=== PATIENT | female | born 1960 | race Hispanic/Latino ===

== ENCOUNTER 2022-07-28 12:11 | Emergency (ER) | payer BC, SELFPAY ==
[2022-07-28] MEDS ORDERED: Morphine 4 MG/ML VIAL ONE (13:12)
[2022-07-28] MEDS ORDERED: Dexamethasone 10 MG/ML VIAL ONE (13:12)
[2022-07-28] MEDS ORDERED: Cyclobenzaprine 10 MG TAB ONE (13:13)
[2022-07-28] MEDS ORDERED: HYDROcodone/Acetaminophen 5/325 mg Tablet ONE (14:39)
== END 2022-07-28 15:15 | disposition home or self-care (01) ==
LOC: CSHERS 12:11
DX: M25.551 Pain in right hip (principal); K21.9 Gastro-esophageal reflux disease without esophagitis; I10 Essential (primary) hypertension; F17.210 Nicotine dependence, cigarettes, uncomplicated; Z79.899 Other long term (current) drug therapy
CPT/HCPCS: 96372; J1100; J2270